=== PATIENT | male | born 1950 | race Caucasian/White ===

== ENCOUNTER 2022-08-23 12:49 | Inpatient (IN) | payer MEDICARE, OTHER ==
[~2022-08-23] VITALS: Ht 175.3 cm; Wt 95.3 kg
[2022-08-23] MEDS ORDERED: HEPARIN SODIUM 25000 UNITS/D5W 250 ML IV ONE (13:29)
[2022-08-23 13:46] LABS: BASOPHILS % (AUTO) 0.3 % (0.0-2.0); EOSINOPHILS % (AUTO) 1.1 % (1.0-6.0); HEMATOCRIT 31.9 % (41-53); LYMPHOCYTES # (AUTO) 1.1 K/uL (1.0-4.8); LYMPHOCYTES % (AUTO) 12.3 % (22.0-44.0); MEAN CORPUSCULAR HEMOGLOBIN 31.5 pg (26.0-34.0); MEAN CORPUSCULAR HGB CONC 34.7 G/dL (31.0-37.0); MEAN CORPUSCULAR VOLUME 91 fL (80-100); MONOCYTES # (AUTO) 0.5 K/uL (0.1-1.0); NEUTROPHILS # (AUTO) 7.2 K/uL (1.8-7.7); NEUTROPHILS % (AUTO) 80.3 % (40.0-70.0); PLATELET COUNT (AUTO) 322 K/uL (150-450); RED BLOOD CELL COUNT(AUTO) 3.51 MIL/uL (4.50-5.90); RED CELL DISTRIBUTION WIDTH 13.7 % (11.5-14.5)
[2022-08-23 13:49] LABS: CALCIUM, TOTAL 8.8 mg/dL (8.8-10.5); CREATININE 1.2 mg/dL (0.60-1.30); POTASSIUM 3.8 mmol/L (3.5-5.1)
[2022-08-23] MEDS: HEPARIN SODIUM 25000 UNITS/D5W 250 ML IV PRN (14:00)
[2022-08-23] MEDS ORDERED: MORPHINE SULFATE 4 MG/ML SYRINGE IVP ONE (14:30)
[2022-08-23] MEDS ORDERED: DILTIAZEM HCL 5 MG/ML 5 ML VIAL IVP ONE (16:15)
[2022-08-23] MEDS: DILTIAZEM HCL 125 MG in DEXTROSE 5%-WATER 100 ML IV SCH (16:28)
[2022-08-23 16:35] LABS: C-REACTIVE PROTEIN QUANT 9.9 mg/dL (0.00-0.30)
[2022-08-23] MEDS ORDERED: MORPHINE SULFATE 4 MG/ML SYRINGE IVP PRN (16:45)
[2022-08-23] MEDS ORDERED: DEXTROSE 50%-WATER 25 GM/50 ML SYRINGE IVP PRN (16:45)
[2022-08-23] MEDS ORDERED: ONDANSETRON HCL 4 MG/2 ML VIAL IVP PRN (16:45)
[2022-08-23] MEDS ORDERED: HEPARIN SODIUM,PORCINE 5,000 UNITS/ML VIAL IVP PRN (16:45)
[2022-08-23] MEDS ORDERED: SODIUM CHLORIDE 0.9% 1,000 ML IV ONE (17:00)
[2022-08-23] MEDS ORDERED: *CLINICAL-CEFTAROLINE DOSING CLINICAL ONE (17:00)
[2022-08-23 17:17] LABS: APPEARANCE,URINE CLEAR (CLEAR); BILIRUBIN,URINE NEGATIVE (NEGATIVE); GLUCOSE, URINE (UA) >=1000 mg/dL (NEGATIVE); KETONES,URINE NEGATIVE (NEGATIVE); LEUKOCYTE ESTERASE ,URINE NEGATIVE (NEGATIVE); NITRATE,URINE NEGATIVE (NEGATIVE); OCCULT BLOOD,URINE MODERATE (NEGATIVE); PH,URINE 6.5 (5.0-8.0); PROTEIN,URINE 30-70 mg/dL (NEGATIVE); SPECIFIC GRAVITIY, URINE 1.015 (1.003-1.030)
[2022-08-23 17:29] LABS: BACTERIA,URINE None Seen /HPF (None Seen); SQUAMOUS EPITHELIAL CELL,UR None Seen /LPF (None Seen); WBC,URINE 0-2 /HPF (0-5)
[2022-08-23] MEDS ORDERED: DIGOXIN 250 MCG/ML 2 ML AMP IVP ONE (17:45)
[2022-08-23] MEDS: CEFTAROLINE 600 MG/D5W 250 ML IV SCH (18:02)
[2022-08-23] MEDS: MORPHINE SULFATE 2 MG/ML SYRINGE IVP PRN (22:31)
[2022-08-23] MEDS: HEPARIN SODIUM,PORCINE 5,000 UNITS/ML VIAL IVP PRN (22:43)
[2022-08-23] MEDS: FAMOTIDINE 20 MG TABLET PO SCH (22:47)
[2022-08-23] MEDS: DOCUSATE SODIUM 100 MG CAPSULE PO SCH (22:47)
[2022-08-23 23:09] VITALS: BP 130/82
[2022-08-23] MEDS: INSULIN LISPRO 100 UNITS/ML SQ PRN (23:21)
[2022-08-23 23:42] LABS: GLUCOMETER DEV NAME(LOC) 5S.2C; GLUCOSE,POINT OF CARE 226 MG/DL (70-110)
[2022-08-24] VITALS (11 sets, daily range): BP systolic 123–150; BP diastolic 58–88
[2022-08-24] MEDS: OxyCODONE HCL/ACETAMINOPHEN 5-325 MG TABLET PO PRN ×4 (01:27→23:55)
[2022-08-24] MEDS: HEPARIN SODIUM 25000 UNITS/D5W 250 ML IV PRN ×2 (02:45→22:32)
[2022-08-24] MEDS: CEFTAROLINE 600 MG/D5W 250 ML IV SCH ×2 (04:20→17:32)
[2022-08-24] MEDS: MORPHINE SULFATE 2 MG/ML SYRINGE IVP PRN ×3 (04:20→21:41)
[2022-08-24] MEDS: INSULIN LISPRO 100 UNITS/ML SQ PRN ×2 (06:08→21:13)
[2022-08-24 06:26] LABS: GLUCOMETER DEV NAME(LOC) 5S.2C; GLUCOSE,POINT OF CARE 214 MG/DL (70-110)
[2022-08-24 06:55] LABS: BASOPHILS % (AUTO) 0.7 % (0.0-2.0); EOSINOPHILS % (AUTO) 0.9 % (1.0-6.0); HEMATOCRIT 26.6 % (41-53); HEMOGLOBIN 9.4 g/dL (13.5-17.5); LYMPHOCYTES # (AUTO) 0.9 K/uL (1.0-4.8); MEAN CORPUSCULAR HEMOGLOBIN 31.9 pg (26.0-34.0); MEAN CORPUSCULAR HGB CONC 35.3 G/dL (31.0-37.0); MEAN CORPUSCULAR VOLUME 90 fL (80-100); MONOCYTES # (AUTO) 0.5 K/uL (0.1-1.0); MONOCYTES % (AUTO) 6.7 % (2.0-9.0); NEUTROPHILS # (AUTO) 6.1 K/uL (1.8-7.7); NEUTROPHILS % (AUTO) 79.7 % (40.0-70.0); PLATELET COUNT (AUTO) 311 K/uL (150-450); RED BLOOD CELL COUNT(AUTO) 2.95 MIL/uL (4.50-5.90); RED CELL DISTRIBUTION WIDTH 13.6 % (11.5-14.5)
[2022-08-24 07:14] LABS: ANION GAP 7 mmol/L (8-16); CALCIUM, TOTAL 8.5 mg/dL (8.8-10.5); CARBON DIOXIDE 28 mmol/L (22-29); CHLORIDE 93 mmol/L (98-107); CREATININE 1.17 mg/dL (0.60-1.30); GLOMERULAR FILTR. RATE CALC > 60 mL/min (>60); GLUCOSE,RANDOM 251 mg/dL (70-110); POTASSIUM 3.6 mmol/L (3.5-5.1); SODIUM SERUM 128 mmol/L (136-145); THYROID STIMULATING HORMONE 1.14 uIU/mL (0.36-3.74); UREA NITROGEN, BLOOD 12 mg/dL (7-18)
[2022-08-24] MEDS: FAMOTIDINE 20 MG TABLET PO SCH ×2 (09:06→21:13)
[2022-08-24] MEDS: DOCUSATE SODIUM 100 MG CAPSULE PO SCH ×2 (09:06→21:13)
[2022-08-24] MEDS: METOPROLOL TARTRATE 25 MG TABLET PO SCH ×2 (11:05→21:13)
[2022-08-24] MEDS ORDERED: LIDOCAINE/PF 1% 30 ML VIAL ONE (14:04)
[2022-08-24] MEDS ORDERED: SODIUM BICARBONATE 50 MEQ/50 ML VIAL ONE (14:04)
[2022-08-24] MEDS ORDERED: IODIXANOL 320 MG/ML 100 ML VIAL ONE ×2 (14:04→14:05)
[2022-08-24] MEDS ORDERED: HEPARIN SODIUM 1000 UNITS/NS 1,000 ML ONE (14:05)
[2022-08-24] MEDS ORDERED: IODIXANOL 320 MG/ML 150 ML VIAL ONE (14:06)
[2022-08-24] MEDS ORDERED: IODIXANOL 320 MG/ML 50 ML VIAL ONE (14:06)
[2022-08-24] MEDS ORDERED: MIDAZOLAM HCL 2 MG/2 ML VIAL ONE (14:53)
[2022-08-24] MEDS ORDERED: FentaNYL CITRATE PF 100 MCG/2 ML VIAL ONE ×2 (14:53→16:25)
[2022-08-24] MEDS ORDERED: FentaNYL CITRATE PF 100 MCG/2 ML VIAL IVP ONE ×4 (15:00→16:30)
[2022-08-24] MEDS ORDERED: SODIUM CHLORIDE 0.9% 500 ML IV ONE (15:00)
[2022-08-24] MEDS ORDERED: IODIXANOL 320 MG/ML 150 ML VIAL IARTER ONE (15:00)
[2022-08-24] MEDS ORDERED: HEPARIN SODIUM 1000 UNITS/NS 1,000 ML IARTER ONE (15:00)
[2022-08-24] MEDS ORDERED: MIDAZOLAM HCL 2 MG/2 ML VIAL IVP ONE ×2 (15:00→15:45)
[2022-08-24] MEDS ORDERED: LIDOCAINE 1% 30 ML/SOD BICARB 8.4% 4 ML SQ ONE (15:00)
[2022-08-24] MEDS ORDERED: HEPARIN SODIUM,PORCINE 1,000 UNITS/ML 10 ML VIAL IVP ONE (16:00)
[2022-08-24] MEDS ORDERED: MORPHINE SULFATE 2 MG/ML SYRINGE ONE (16:11)
[2022-08-24] MEDS ORDERED: MORPHINE SULFATE 2 MG/ML SYRINGE IVP ONE (16:15)
[2022-08-24 16:56] LABS: GLUCOMETER DEV NAME(LOC) 5N.2C; GLUCOSE,POINT OF CARE 189 MG/DL (70-110)
[2022-08-24] MEDS: DILTIAZEM HCL 125 MG in DEXTROSE 5%-WATER 100 ML IV SCH (17:43)
[2022-08-24 18:56] LABS: GLUCOMETER DEV NAME(LOC) 5N.2C; GLUCOSE,POINT OF CARE 169 MG/DL (70-110)
[2022-08-24 20:16] LABS: GLUCOMETER DEV NAME(LOC) 5N.2C; GLUCOSE,POINT OF CARE 219 MG/DL (70-110)
[2022-08-24] MEDS ORDERED: AMIODARONE HCL 360 MG in DEXTROSE 5%-WATER 242.8 ML IV ONE ×2 (20:45→21:10)
[2022-08-24] MEDS ORDERED: AMIODARONE HCL 150 MG in DEXTROSE 5%-WATER 97 ML IV ONE (21:00)
[2022-08-24] MEDS: HEPARIN SODIUM,PORCINE 5,000 UNITS/ML VIAL IVP PRN (22:31)
[2022-08-24] MEDS: GABAPENTIN 100 MG CAPSULE PO SCH (23:55)
[2022-08-25] VITALS (7 sets, daily range): BP systolic 107–144; BP diastolic 58–92
[2022-08-25] MEDS: MORPHINE SULFATE 2 MG/ML SYRINGE IVP PRN ×5 (01:57→20:37)
[2022-08-25] MEDS ORDERED: AMIODARONE HCL 540 MG in DEXTROSE 5%-WATER 239.2 ML IV ONE (03:10)
[2022-08-25] MEDS: CEFTAROLINE 600 MG/D5W 250 ML IV SCH ×2 (05:54→17:02)
[2022-08-25] MEDS: INSULIN LISPRO 100 UNITS/ML SQ PRN ×4 (06:05→20:48)
[2022-08-25 06:27] LABS: GLUCOMETER DEV NAME(LOC) 5N.2C; GLUCOSE,POINT OF CARE 190 MG/DL (70-110)
[2022-08-25] MEDS: DOCUSATE SODIUM 100 MG CAPSULE PO SCH ×2 (08:21→20:36)
[2022-08-25] MEDS: GABAPENTIN 100 MG CAPSULE PO SCH ×3 (08:21→23:18)
[2022-08-25] MEDS: METOPROLOL TARTRATE 50 MG TABLET PO SCH ×2 (08:22→20:36)
[2022-08-25] MEDS: FAMOTIDINE 20 MG TABLET PO SCH ×2 (08:22→20:37)
[2022-08-25] MEDS: OxyCODONE HCL/ACETAMINOPHEN 5-325 MG TABLET PO PRN ×2 (08:23→23:18)
[2022-08-25 11:56] LABS: GLUCOMETER DEV NAME(LOC) 5S.2C; GLUCOSE,POINT OF CARE 234 MG/DL (70-110)
[2022-08-25 20:46] LABS: GLUCOMETER DEV NAME(LOC) 5S.2C; GLUCOSE,POINT OF CARE 238 MG/DL (70-110)
[2022-08-25] MEDS: AMIODARONE HCL 750 MG in DEXTROSE 5%-WATER 485 ML IV SCH (21:38)
[2022-08-25 21:41] LABS: GLUCOMETER DEV NAME(LOC) 5S.2C; GLUCOSE,POINT OF CARE 202 MG/DL (70-110)
[2022-08-26] MEDS: CEFTAROLINE 600 MG/D5W 250 ML IV SCH ×2 (04:30→16:51)
[2022-08-26] MEDS: MORPHINE SULFATE 2 MG/ML SYRINGE IVP PRN ×3 (04:30→21:09)
[2022-08-26] MEDS: HEPARIN SODIUM 25000 UNITS/D5W 250 ML IV PRN (04:31)
[2022-08-26 04:36] VITALS: BP 155/83
[2022-08-26] MEDS: INSULIN LISPRO 100 UNITS/ML SQ PRN ×4 (06:03→21:07)
[2022-08-26] MEDS ORDERED: DIGOXIN 250 MCG/ML 2 ML AMP IVP ONE (06:15)
[2022-08-26] MEDS ORDERED: RINGERS SOLUTION,LACTATED 1,000 ML IV SCH (06:30)
[2022-08-26] MEDS ORDERED: RINGERS SOLUTION,LACTATED 1,000 ML IV ONE (06:36)
[2022-08-26] MEDS ORDERED: BUPIVACAINE HCL/PF 0.5% 30 ML VIAL ONE (06:44)
[2022-08-26] MEDS ORDERED: VANCOMYCIN HCL 1 GM/VIAL ONE (06:44)
[2022-08-26] MEDS ORDERED: LIDOCAINE/PF 1% 30 ML VIAL ONE (06:44)
[2022-08-26] MEDS ORDERED: SODIUM CHLORIDE 0.9% 1,000 ML ONE (06:44)
[2022-08-26 07:17] LABS: BASOPHILS % (AUTO) 0.6 % (0.0-2.0); HEMATOCRIT 25.2 % (41-53); HEMOGLOBIN 8.7 g/dL (13.5-17.5); LYMPHOCYTES # (AUTO) 1.1 K/uL (1.0-4.8); LYMPHOCYTES % (AUTO) 11.3 % (22.0-44.0); MEAN CORPUSCULAR HEMOGLOBIN 30.9 pg (26.0-34.0); MEAN CORPUSCULAR HGB CONC 34.6 G/dL (31.0-37.0); MEAN CORPUSCULAR VOLUME 89 fL (80-100); MONOCYTES # (AUTO) 0.7 K/uL (0.1-1.0); MONOCYTES % (AUTO) 7.5 % (2.0-9.0); NEUTROPHILS # (AUTO) 7.5 K/uL (1.8-7.7); NEUTROPHILS % (AUTO) 79.6 % (40.0-70.0); PLATELET COUNT (AUTO) 374 K/uL (150-450); RED BLOOD CELL COUNT(AUTO) 2.83 MIL/uL (4.50-5.90); RED CELL DISTRIBUTION WIDTH 13.7 % (11.5-14.5)
[2022-08-26 07:37] LABS: CARBON DIOXIDE 26 mmol/L (22-29); CHLORIDE 96 mmol/L (98-107); POTASSIUM 3.5 mmol/L (3.5-5.1); SODIUM SERUM 130 mmol/L (136-145)
[2022-08-26 07:38] LABS: ANION GAP 8 mmol/L (8-16); CALCIUM, TOTAL 8.4 mg/dL (8.8-10.5); CREATININE 0.93 mg/dL (0.60-1.30); GLOMERULAR FILTR. RATE CALC > 60 mL/min (>60); GLUCOSE,RANDOM 206 mg/dL (70-110); UREA NITROGEN, BLOOD 6 mg/dL (7-18)
[2022-08-26] MEDS: GABAPENTIN 100 MG CAPSULE PO SCH ×3 (08:15→23:47)
[2022-08-26 08:49] VITALS: BP 172/107
[2022-08-26] MEDS: OxyCODONE HCL/ACETAMINOPHEN 5-325 MG TABLET PO PRN ×3 (09:16→15:53)
[2022-08-26] MEDS: DOCUSATE SODIUM 100 MG CAPSULE PO SCH ×2 (09:17→21:00)
[2022-08-26] MEDS: FAMOTIDINE 20 MG TABLET PO SCH ×2 (09:17→21:08)
[2022-08-26] MEDS: METOPROLOL TARTRATE 50 MG TABLET PO SCH ×2 (09:19→21:08)
[2022-08-26 11:14] VITALS: BP 137/82
[2022-08-26] MEDS ORDERED: FentaNYL CITRATE PF 100 MCG/2 ML VIAL IVP ONE (12:00)
[2022-08-26] MEDS ORDERED: MIDAZOLAM HCL 2 MG/2 ML VIAL IVP ONE (12:00)
[2022-08-26] MEDS: DIGOXIN 125 MCG TABLET PO SCH (13:33)
[2022-08-26 20:41] LABS: GLUCOMETER DEV NAME(LOC) 5N.2C; GLUCOSE,POINT OF CARE 199 MG/DL (70-110)
[2022-08-26 20:41] LABS: GLUCOMETER DEV NAME(LOC) 5N.2C; GLUCOSE,POINT OF CARE 207 MG/DL (70-110)
[2022-08-26 20:41] LABS: GLUCOMETER DEV NAME(LOC) 5N.2C; GLUCOSE,POINT OF CARE 259 MG/DL (70-110)
[2022-08-26 20:57] VITALS: BP 129/73
[2022-08-26] MEDS: AMIODARONE HCL 750 MG in DEXTROSE 5%-WATER 485 ML IV SCH (23:47)
[2022-08-26 23:48] VITALS: BP 137/80
[2022-08-27] VITALS (10 sets, daily range): BP systolic 135–166; BP diastolic 79–98
[2022-08-27 00:06] LABS: GLUCOMETER DEV NAME(LOC) 5S.2C; GLUCOSE,POINT OF CARE 224 MG/DL (70-110)
[2022-08-27] MEDS: MORPHINE SULFATE 2 MG/ML SYRINGE IVP PRN ×3 (03:25→21:44)
[2022-08-27] MEDS: CEFTAROLINE 600 MG/D5W 250 ML IV SCH ×2 (05:10→17:17)
[2022-08-27] MEDS: INSULIN LISPRO 100 UNITS/ML SQ PRN ×4 (06:08→21:40)
[2022-08-27] MEDS ORDERED: SODIUM CHLORIDE 0.9% 1,000 ML ONE ×2 (06:19→07:05)
[2022-08-27] MEDS ORDERED: VANCOMYCIN HCL 1 GM/VIAL ONE (06:19)
[2022-08-27] MEDS ORDERED: BUPIVACAINE HCL/PF 0.5% 30 ML VIAL ONE (06:19)
[2022-08-27] MEDS ORDERED: LIDOCAINE/PF 1% 30 ML VIAL ONE (06:19)
[2022-08-27 06:56] LABS: BASOPHILS % (AUTO) 0.4 % (0.0-2.0); EOSINOPHILS % (AUTO) 0.6 % (1.0-6.0); HEMATOCRIT 26.1 % (41-53); HEMOGLOBIN 9.1 g/dL (13.5-17.5); LYMPHOCYTES # (AUTO) 0.9 K/uL (1.0-4.8); LYMPHOCYTES % (AUTO) 9.9 % (22.0-44.0); MEAN CORPUSCULAR HEMOGLOBIN 31.3 pg (26.0-34.0); MEAN CORPUSCULAR VOLUME 89 fL (80-100); MONOCYTES # (AUTO) 0.8 K/uL (0.1-1.0); MONOCYTES % (AUTO) 8.5 % (2.0-9.0); NEUTROPHILS # (AUTO) 7.7 K/uL (1.8-7.7); NEUTROPHILS % (AUTO) 80.6 % (40.0-70.0); PLATELET COUNT (AUTO) 413 K/uL (150-450); RED BLOOD CELL COUNT(AUTO) 2.92 MIL/uL (4.50-5.90); RED CELL DISTRIBUTION WIDTH 13.9 % (11.5-14.5)
[2022-08-27] MEDS ORDERED: ACETAMINOPHEN 1000 MG/ISO-OSM 100 ML IV ONE (07:39)
[2022-08-27] MEDS ORDERED: FentaNYL CITRATE PF 100 MCG/2 ML VIAL IVP PRN (07:45)
[2022-08-27] MEDS: OXYGEN THERAPY IH SCH ×2 (08:00→21:53)
[2022-08-27] MEDS: FAMOTIDINE 20 MG TABLET PO SCH ×2 (09:25→21:41)
[2022-08-27] MEDS: DOCUSATE SODIUM 100 MG CAPSULE PO SCH ×2 (09:26→21:40)
[2022-08-27] MEDS: DIGOXIN 125 MCG TABLET PO SCH (09:26)
[2022-08-27] MEDS: GABAPENTIN 100 MG CAPSULE PO SCH ×3 (09:26→23:44)
[2022-08-27] MEDS: METOPROLOL TARTRATE 50 MG TABLET PO SCH ×2 (09:27→21:40)
[2022-08-27 10:50] LABS: ANION GAP 8 mmol/L (8-16); CALCIUM, TOTAL 8.1 mg/dL (8.8-10.5); CARBON DIOXIDE 25 mmol/L (22-29); CHLORIDE 97 mmol/L (98-107); CREATININE 1.04 mg/dL (0.60-1.30); GLOMERULAR FILTR. RATE CALC > 60 mL/min (>60); GLUCOSE,RANDOM 169 mg/dL (70-110); POTASSIUM 3.7 mmol/L (3.5-5.1); SODIUM SERUM 130 mmol/L (136-145); UREA NITROGEN, BLOOD 6 mg/dL (7-18)
[2022-08-27] MEDS: HEPARIN SODIUM 25000 UNITS/D5W 250 ML IV PRN (11:52)
[2022-08-27] MEDS ORDERED: KETOROLAC TROMETHAMINE 60 MG/2 ML VIAL IM ONE (12:00)
[2022-08-27] MEDS ORDERED: PROPOFOL 1% 20 ML VIAL IVP ONE (12:00)
[2022-08-27] MEDS ORDERED: LIDOCAINE/PF 2% 5 ML VIAL IM ONE (12:00)
[2022-08-27] MEDS: OxyCODONE HCL/ACETAMINOPHEN 5-325 MG TABLET PO PRN (13:04)
[2022-08-27] MEDS: AMIODARONE HCL 200 MG TABLET PO SCH ×2 (15:54→21:41)
[2022-08-27 18:37] LABS: GLUCOMETER DEV NAME(LOC) 5S.2C; GLUCOSE,POINT OF CARE 156 MG/DL (70-110)
[2022-08-28 00:04] VITALS: BP 126/81
[2022-08-28 03:43] VITALS: BP 141/78
[2022-08-28] MEDS: CEFTAROLINE 600 MG/D5W 250 ML IV SCH ×2 (05:11→16:21)
[2022-08-28] MEDS: INSULIN LISPRO 100 UNITS/ML SQ PRN ×3 (06:27→20:27)
[2022-08-28] MEDS: MORPHINE SULFATE 2 MG/ML SYRINGE IVP PRN ×3 (06:28→20:31)
[2022-08-28 07:35] VITALS: BP 146/87
[2022-08-28] MEDS: OXYGEN THERAPY IH SCH ×2 (08:00→20:00)
[2022-08-28] MEDS: GABAPENTIN 100 MG CAPSULE PO SCH ×2 (08:50→16:21)
[2022-08-28] MEDS: DIGOXIN 125 MCG TABLET PO SCH (08:50)
[2022-08-28] MEDS: AMIODARONE HCL 200 MG TABLET PO SCH (08:50)
[2022-08-28] MEDS: DOCUSATE SODIUM 100 MG CAPSULE PO SCH ×2 (08:50→20:40)
[2022-08-28] MEDS: FAMOTIDINE 20 MG TABLET PO SCH ×2 (08:50→20:23)
[2022-08-28] MEDS: METOPROLOL TARTRATE 50 MG TABLET PO SCH ×2 (08:51→20:23)
[2022-08-28] MEDS: ACETAMINOPHEN 325 MG TABLET PO PRN (08:51)
[2022-08-28] MEDS: OxyCODONE HCL/ACETAMINOPHEN 5-325 MG TABLET PO PRN ×3 (08:51→17:16)
[2022-08-28] MEDS: APIXABAN 5 MG TABLET PO SCH ×2 (08:54→20:24)
[2022-08-28 11:07] VITALS: BP 137/70
[2022-08-28 11:32] LABS: APPEARANCE,URINE CLEAR (CLEAR); BILIRUBIN,URINE NEGATIVE (NEGATIVE); GLUCOSE, URINE (UA) 70-100 mg/dL (NEGATIVE); KETONES,URINE NEGATIVE (NEGATIVE); LEUKOCYTE ESTERASE ,URINE NEGATIVE (NEGATIVE); NITRATE,URINE NEGATIVE (NEGATIVE); OCCULT BLOOD,URINE TRACE (NEGATIVE); PH,URINE 6.5 (5.0-8.0); PROTEIN,URINE 30-70 mg/dL (NEGATIVE); SPECIFIC GRAVITIY, URINE 1.008 (1.003-1.030)
[2022-08-28 11:38] LABS: BACTERIA,URINE None Seen /HPF (None Seen); RBC,URINE 0-2 /HPF (0-2); WBC,URINE None Seen /HPF (0-5)
[2022-08-28 16:14] VITALS: BP 153/103
[2022-08-28 18:37] LABS: GLUCOMETER DEV NAME(LOC) 5N.2C; GLUCOSE,POINT OF CARE 213 MG/DL (70-110)
[2022-08-28 18:37] LABS: GLUCOMETER DEV NAME(LOC) 5N.2C; GLUCOSE,POINT OF CARE 196 MG/DL (70-110)
[2022-08-28 18:37] LABS: GLUCOMETER DEV NAME(LOC) 5N.2C; GLUCOSE,POINT OF CARE 203 MG/DL (70-110)
[2022-08-28 18:46] LABS: GLUCOMETER DEV NAME(LOC) 5S.2C; GLUCOSE,POINT OF CARE 135 MG/DL (70-110)
[2022-08-28 18:46] LABS: GLUCOMETER DEV NAME(LOC) 5S.2C; GLUCOSE,POINT OF CARE 209 MG/DL (70-110)
[2022-08-28 18:46] LABS: GLUCOMETER DEV NAME(LOC) 5S.2C; GLUCOSE,POINT OF CARE 197 MG/DL (70-110)
[2022-08-28 20:11] VITALS: BP 133/81
[2022-08-28 23:06] LABS: GLUCOMETER DEV NAME(LOC) 5S.2C; GLUCOSE,POINT OF CARE 223 MG/DL (70-110)
[2022-08-29 00:10] VITALS: BP 140/85
[2022-08-29] MEDS: GABAPENTIN 100 MG CAPSULE PO SCH ×3 (00:15→17:56)
[2022-08-29] MEDS: MORPHINE SULFATE 2 MG/ML SYRINGE IVP PRN ×5 (04:37→22:16)
[2022-08-29] MEDS: CEFTAROLINE 600 MG/D5W 250 ML IV SCH ×2 (04:37→17:56)
[2022-08-29 05:18] VITALS: BP 159/85
[2022-08-29] MEDS: INSULIN LISPRO 100 UNITS/ML SQ PRN ×4 (06:28→21:14)
[2022-08-29 07:30] VITALS: BP 144/88
[2022-08-29] MEDS: OXYGEN THERAPY IH SCH ×2 (08:00→21:15)
[2022-08-29] MEDS: AMIODARONE HCL 200 MG TABLET PO SCH (08:21)
[2022-08-29] MEDS: APIXABAN 5 MG TABLET PO SCH ×2 (08:21→21:15)
[2022-08-29] MEDS: DOCUSATE SODIUM 100 MG CAPSULE PO SCH ×2 (08:21→21:00)
[2022-08-29] MEDS: DIGOXIN 125 MCG TABLET PO SCH (08:21)
[2022-08-29] MEDS: METOPROLOL TARTRATE 50 MG TABLET PO SCH ×2 (08:21→21:15)
[2022-08-29] MEDS: FAMOTIDINE 20 MG TABLET PO SCH ×2 (08:21→21:15)
[2022-08-29] MEDS: OxyCODONE HCL/ACETAMINOPHEN 5-325 MG TABLET PO PRN ×4 (09:40→19:01)
[2022-08-29 11:38] VITALS: BP 159/72
[2022-08-29 15:29] VITALS: BP 140/81
[2022-08-29 20:16] LABS: GLUCOMETER DEV NAME(LOC) 5N.2C; GLUCOSE,POINT OF CARE 195 MG/DL (70-110)
[2022-08-29 20:16] LABS: GLUCOMETER DEV NAME(LOC) 5N.2C; GLUCOSE,POINT OF CARE 183 MG/DL (70-110)
[2022-08-29 20:16] LABS: GLUCOMETER DEV NAME(LOC) 5S.2C; GLUCOSE,POINT OF CARE 171 MG/DL (70-110)
[2022-08-29 20:37] VITALS: BP 143/92
[2022-08-30 00:03] VITALS: BP 137/71
[2022-08-30] MEDS: GABAPENTIN 100 MG CAPSULE PO SCH ×4 (00:21→23:41)
[2022-08-30] MEDS: OxyCODONE HCL/ACETAMINOPHEN 5-325 MG TABLET PO PRN ×4 (00:21→22:32)
[2022-08-30 01:56] LABS: GLUCOMETER DEV NAME(LOC) 5N.2C; GLUCOSE,POINT OF CARE 184 MG/DL (70-110)
[2022-08-30 05:28] VITALS: BP 156/93
[2022-08-30] MEDS: MORPHINE SULFATE 2 MG/ML SYRINGE IVP PRN ×3 (06:03→16:27)
[2022-08-30] MEDS: CEFTAROLINE 600 MG/D5W 250 ML IV SCH ×2 (06:03→16:40)
[2022-08-30 06:12] LABS: BASOPHILS % (AUTO) 0.8 % (0.0-2.0); EOSINOPHILS % (AUTO) 1.1 % (1.0-6.0); HEMATOCRIT 27.9 % (41-53); HEMOGLOBIN 9.5 g/dL (13.5-17.5); LYMPHOCYTES # (AUTO) 1.4 K/uL (1.0-4.8); LYMPHOCYTES % (AUTO) 16.1 % (22.0-44.0); MEAN CORPUSCULAR HEMOGLOBIN 30.6 pg (26.0-34.0); MEAN CORPUSCULAR VOLUME 90 fL (80-100); MONOCYTES # (AUTO) 0.7 K/uL (0.1-1.0); MONOCYTES % (AUTO) 8.5 % (2.0-9.0); NEUTROPHILS # (AUTO) 6.3 K/uL (1.8-7.7); NEUTROPHILS % (AUTO) 73.5 % (40.0-70.0); PLATELET COUNT (AUTO) 543 K/uL (150-450)
[2022-08-30] MEDS ORDERED: HEPARIN SODIUM,PORCINE 5,000 UNITS/ML VIAL IVP PRN (06:15)
[2022-08-30 06:25] LABS: INR 1.2 (0.9-1.1); PROTHROMBIN TIME 12.3 SEC (9.4-11.6)
[2022-08-30 06:41] LABS: GLUCOMETER DEV NAME(LOC) 5N.2C; GLUCOSE,POINT OF CARE 123 MG/DL (70-110)
[2022-08-30 07:26] VITALS: BP 161/103
[2022-08-30] MEDS: OXYGEN THERAPY IH SCH (08:00)
[2022-08-30] MEDS: DIGOXIN 125 MCG TABLET PO SCH (08:09)
[2022-08-30] MEDS: FAMOTIDINE 20 MG TABLET PO SCH ×2 (08:10→20:34)
[2022-08-30] MEDS: AMIODARONE HCL 200 MG TABLET PO SCH (08:11)
[2022-08-30] MEDS: METOPROLOL TARTRATE 50 MG TABLET PO SCH ×2 (08:11→20:34)
[2022-08-30] MEDS: DOCUSATE SODIUM 100 MG CAPSULE PO SCH ×2 (08:11→20:34)
[2022-08-30] MEDS: HEPARIN SODIUM 25000 UNITS/D5W 250 ML IV PRN (08:43)
[2022-08-30] MEDS: HEPARIN SODIUM,PORCINE 5,000 UNITS/ML VIAL IVP PRN (08:52)
[2022-08-30 11:37] VITALS: BP 129/80
[2022-08-30 15:40] VITALS: BP 138/84
[2022-08-30 15:53] LABS: ALANINE AMINOTRANSFERASE 20 U/L (12-78); ALBUMIN 1.9 g/dL (3.4-5.0); ALKALINE PHOSPHATASE 92 U/L (46-116); ANION GAP 6 mmol/L (8-16); ASPARTATE AMINOTRANSFERASE 13 U/L (15-37); BILIRUBIN,TOTAL 0.2 mg/dL (0.1-1.0); CALCIUM, TOTAL 8.7 mg/dL (8.8-10.5); CARBON DIOXIDE 27 mmol/L (22-29); CHLORIDE 95 mmol/L (98-107); CREATININE 1.11 mg/dL (0.60-1.30); GLOMERULAR FILTR. RATE CALC > 60 mL/min (>60); GLUCOSE,RANDOM 169 mg/dL (70-110); POTASSIUM 4.8 mmol/L (3.5-5.1); SODIUM SERUM 128 mmol/L (136-145); TOTAL PROTEIN, SERUM 6.8 g/dL (6.4-8.2); UREA NITROGEN, BLOOD 9 mg/dL (7-18)
[2022-08-30 20:16] VITALS: BP 159/95
[2022-08-30 20:21] LABS: GLUCOMETER DEV NAME(LOC) 5S.2C; GLUCOSE,POINT OF CARE 194 MG/DL (70-110)
[2022-08-30 20:21] LABS: GLUCOMETER DEV NAME(LOC) 5S.2C; GLUCOSE,POINT OF CARE 189 MG/DL (70-110)
[2022-08-30] MEDS: INSULIN LISPRO 100 UNITS/ML SQ PRN (20:31)
[2022-08-30 21:16] LABS: GLUCOMETER DEV NAME(LOC) 5N.2C; GLUCOSE,POINT OF CARE 173 MG/DL (70-110)
[2022-08-31 00:06] VITALS: BP 147/86
[2022-08-31] MEDS: HEPARIN SODIUM 25000 UNITS/D5W 250 ML IV PRN ×4 (02:23→17:37)
[2022-08-31 04:53] VITALS: BP 160/102
[2022-08-31] MEDS: CEFTAROLINE 600 MG/D5W 250 ML IV SCH ×2 (05:32→17:30)
[2022-08-31] MEDS: OxyCODONE HCL/ACETAMINOPHEN 5-325 MG TABLET PO PRN ×3 (05:32→21:41)
[2022-08-31 06:22] LABS: GLUCOMETER DEV NAME(LOC) 5N.2C; GLUCOSE,POINT OF CARE 168 MG/DL (70-110)
[2022-08-31] MEDS: INSULIN LISPRO 100 UNITS/ML SQ PRN ×3 (06:25→21:45)
[2022-08-31 06:43] LABS: BASOPHILS % (AUTO) 0.9 % (0.0-2.0); EOSINOPHILS % (AUTO) 1.4 % (1.0-6.0); HEMATOCRIT 27.6 % (41-53); HEMOGLOBIN 9.6 g/dL (13.5-17.5); LYMPHOCYTES # (AUTO) 1.4 K/uL (1.0-4.8); LYMPHOCYTES % (AUTO) 15.5 % (22.0-44.0); MEAN CORPUSCULAR HEMOGLOBIN 30.8 pg (26.0-34.0); MEAN CORPUSCULAR HGB CONC 34.7 G/dL (31.0-37.0); MEAN CORPUSCULAR VOLUME 89 fL (80-100); MONOCYTES # (AUTO) 0.9 K/uL (0.1-1.0); MONOCYTES % (AUTO) 9.7 % (2.0-9.0); NEUTROPHILS # (AUTO) 6.5 K/uL (1.8-7.7); NEUTROPHILS % (AUTO) 72.5 % (40.0-70.0); PLATELET COUNT (AUTO) 615 K/uL (150-450); RED BLOOD CELL COUNT(AUTO) 3.12 MIL/uL (4.50-5.90); RED CELL DISTRIBUTION WIDTH 14.1 % (11.5-14.5)
[2022-08-31] MEDS: METOPROLOL TARTRATE 50 MG TABLET PO SCH ×2 (08:03→21:00)
[2022-08-31] MEDS: DOCUSATE SODIUM 100 MG CAPSULE PO SCH ×2 (08:04→21:41)
[2022-08-31] MEDS: FAMOTIDINE 20 MG TABLET PO SCH ×2 (08:04→21:41)
[2022-08-31] MEDS: AMIODARONE HCL 200 MG TABLET PO SCH (08:04)
[2022-08-31] MEDS: DIGOXIN 125 MCG TABLET PO SCH (08:04)
[2022-08-31] MEDS: MORPHINE SULFATE 2 MG/ML SYRINGE IVP PRN (08:04)
[2022-08-31] MEDS: HEPARIN SODIUM,PORCINE 5,000 UNITS/ML VIAL IVP PRN (08:07)
[2022-08-31] MEDS: GABAPENTIN 100 MG CAPSULE PO SCH ×2 (08:11→15:47)
[2022-08-31 10:10] VITALS: BP 136/75
[2022-08-31 15:35] VITALS: BP 120/72
[2022-08-31 17:36] LABS: GLUCOMETER DEV NAME(LOC) 5N.2C; GLUCOSE,POINT OF CARE 137 MG/DL (70-110)
[2022-08-31 19:56] LABS: GLUCOMETER DEV NAME(LOC) 5N.2C; GLUCOSE,POINT OF CARE 161 MG/DL (70-110)
[2022-08-31 20:00] VITALS: BP 122/70
[2022-09-01] VITALS (15 sets, daily range): BP systolic 119–169; BP diastolic 64–106
[2022-09-01] MEDS: GABAPENTIN 100 MG CAPSULE PO SCH ×3 (00:11→16:41)
[2022-09-01 01:01] LABS: GLUCOMETER DEV NAME(LOC) 5N.2C; GLUCOSE,POINT OF CARE 223 MG/DL (70-110)
[2022-09-01] MEDS: MORPHINE SULFATE 2 MG/ML SYRINGE IVP PRN ×2 (01:54→12:57)
[2022-09-01] MEDS: CEFTAROLINE 600 MG/D5W 250 ML IV SCH ×2 (05:26→16:41)
[2022-09-01] MEDS: METOPROLOL TARTRATE 50 MG TABLET PO SCH ×2 (08:06→20:50)
[2022-09-01] MEDS: DIGOXIN 125 MCG TABLET PO SCH (08:06)
[2022-09-01] MEDS: AMIODARONE HCL 200 MG TABLET PO SCH (08:06)
[2022-09-01] MEDS: DOCUSATE SODIUM 100 MG CAPSULE PO SCH ×2 (08:07→20:50)
[2022-09-01] MEDS: FAMOTIDINE 20 MG TABLET PO SCH ×2 (08:07→20:50)
[2022-09-01 08:09] LABS: ANION GAP 8 mmol/L (8-16); CARBON DIOXIDE 27 mmol/L (22-29); CHLORIDE 95 mmol/L (98-107); CREATININE 1.09 mg/dL (0.60-1.30); GLOMERULAR FILTR. RATE CALC > 60 mL/min (>60); GLUCOSE,RANDOM 182 mg/dL (70-110); POTASSIUM 4.5 mmol/L (3.5-5.1); SODIUM SERUM 130 mmol/L (136-145); UREA NITROGEN, BLOOD 8 mg/dL (7-18)
[2022-09-01] MEDS: HEPARIN SODIUM 25000 UNITS/D5W 250 ML IV PRN (08:09)
[2022-09-01 08:12] LABS: PHOSPHORUS 3.5 mg/dL (2.5-4.9)
[2022-09-01 08:18] LABS: EOSINOPHILS % (AUTO) 1.7 % (1.0-6.0); HEMATOCRIT 28.9 % (41-53); HEMOGLOBIN 9.7 g/dL (13.5-17.5); LYMPHOCYTES # (AUTO) 1.2 K/uL (1.0-4.8); LYMPHOCYTES % (AUTO) 14.6 % (22.0-44.0); MEAN CORPUSCULAR HEMOGLOBIN 29.7 pg (26.0-34.0); MEAN CORPUSCULAR HGB CONC 33.5 G/dL (31.0-37.0); MEAN CORPUSCULAR VOLUME 89 fL (80-100); MONOCYTES # (AUTO) 0.8 K/uL (0.1-1.0); NEUTROPHILS # (AUTO) 6.1 K/uL (1.8-7.7); NEUTROPHILS % (AUTO) 72.7 % (40.0-70.0); PLATELET COUNT (AUTO) 669 K/uL (150-450); RED BLOOD CELL COUNT(AUTO) 3.26 MIL/uL (4.50-5.90); RED CELL DISTRIBUTION WIDTH 14.3 % (11.5-14.5)
[2022-09-01 08:27] LABS: INR 1.1 (0.9-1.1); PROTHROMBIN TIME 11.7 SEC (9.4-11.6)
[2022-09-01] MEDS ORDERED: IODIXANOL 320 MG/ML 150 ML VIAL ONE ×2 (08:50→09:10)
[2022-09-01] MEDS ORDERED: HEPARIN SODIUM 1000 UNITS/NS 1,000 ML ONE (08:51)
[2022-09-01] MEDS ORDERED: SODIUM BICARBONATE 50 MEQ/50 ML VIAL ONE (08:52)
[2022-09-01] MEDS ORDERED: MIDAZOLAM HCL 2 MG/2 ML VIAL ONE ×2 (08:52→10:13)
[2022-09-01] MEDS ORDERED: LIDOCAINE/PF 1% 30 ML VIAL ONE (08:52)
[2022-09-01] MEDS ORDERED: FentaNYL CITRATE PF 100 MCG/2 ML VIAL ONE ×2 (08:52→10:49)
[2022-09-01] MEDS ORDERED: HEPARIN SODIUM 2,000 UNITS in HEPARIN SODIUM 1000 UNITS/NS 1,000 ML IARTER ONE (09:00)
[2022-09-01] MEDS ORDERED: IODIXANOL 320 MG/ML 150 ML VIAL IARTER ONE (09:00)
[2022-09-01] MEDS ORDERED: FentaNYL CITRATE PF 100 MCG/2 ML VIAL IVP ONE ×6 (09:00→11:15)
[2022-09-01] MEDS ORDERED: LIDOCAINE 1% 30 ML/SOD BICARB 8.4% 4 ML SQ ONE (09:00)
[2022-09-01] MEDS ORDERED: SODIUM CHLORIDE 0.9% 500 ML IV ONE (09:00)
[2022-09-01] MEDS ORDERED: MIDAZOLAM HCL 2 MG/2 ML VIAL IVP ONE ×4 (09:00→11:15)
[2022-09-01] MEDS ORDERED: HEPARIN SODIUM,PORCINE 1,000 UNITS/ML 10 ML VIAL ONE (10:05)
[2022-09-01] MEDS ORDERED: HEPARIN SODIUM,PORCINE 1,000 UNITS/ML 10 ML VIAL IV ONE ×2 (10:15)
[2022-09-01] MEDS ORDERED: NITROGLYCERIN 50 MG/D5% WATER 250 ML ONE (10:34)
[2022-09-01] MEDS ORDERED: NITROGLYCERIN/D5W 50 MG/250 ML IV BOTTLE ICOR ONE (10:45)
[2022-09-01] MEDS ORDERED: HEPARIN SODIUM,PORCINE 1,000 UNITS/ML 10 ML VIAL ICOR ONE (11:00)
[2022-09-01] MEDS ORDERED: HEPARIN SODIUM,PORCINE 1,000 UNITS/ML 10 ML VIAL IARTER ONE (11:15)
[2022-09-01 12:11] LABS: GLUCOMETER DEV NAME(LOC) 5N.2C; GLUCOSE,POINT OF CARE 149 MG/DL (70-110)
[2022-09-01] MEDS: OxyCODONE HCL/ACETAMINOPHEN 5-325 MG TABLET PO PRN (15:30)
[2022-09-01] MEDS: INSULIN LISPRO 100 UNITS/ML SQ PRN ×2 (18:06→20:54)
[2022-09-01] MEDS: CIPROFLOXACIN 400 MG/D5% WATER 200 ML IV SCH (18:36)
[2022-09-01 21:41] LABS: GLUCOMETER DEV NAME(LOC) 5N.2C; GLUCOSE,POINT OF CARE 196 MG/DL (70-110)
[2022-09-01 21:41] LABS: GLUCOMETER DEV NAME(LOC) 5N.2C; GLUCOSE,POINT OF CARE 167 MG/DL (70-110)
[2022-09-02] VITALS: BP 142/82
[2022-09-02] MEDS: GABAPENTIN 100 MG CAPSULE PO SCH ×4 (00:03→23:38)
[2022-09-02] MEDS: MORPHINE SULFATE 2 MG/ML SYRINGE IVP PRN ×3 (01:49→21:40)
[2022-09-02 04:00] VITALS: BP 152/84
[2022-09-02] MEDS: OxyCODONE HCL/ACETAMINOPHEN 5-325 MG TABLET PO PRN ×2 (05:05→09:18)
[2022-09-02] MEDS: CEFTAROLINE 600 MG/D5W 250 ML IV SCH (05:05)
[2022-09-02] MEDS: INSULIN LISPRO 100 UNITS/ML SQ PRN ×4 (06:04→20:19)
[2022-09-02] MEDS: CIPROFLOXACIN 400 MG/D5% WATER 200 ML IV SCH ×2 (06:32→17:52)
[2022-09-02 08:15] VITALS: BP 151/74
[2022-09-02] MEDS: AMIODARONE HCL 200 MG TABLET PO SCH (08:22)
[2022-09-02] MEDS: FAMOTIDINE 20 MG TABLET PO SCH ×2 (08:23→21:38)
[2022-09-02] MEDS: DIGOXIN 125 MCG TABLET PO SCH (08:23)
[2022-09-02] MEDS: DOCUSATE SODIUM 100 MG CAPSULE PO SCH ×2 (08:23→21:38)
[2022-09-02] MEDS: METOPROLOL TARTRATE 50 MG TABLET PO SCH ×2 (08:23→21:38)
[2022-09-02] MEDS: HEPARIN SODIUM,PORCINE 5,000 UNITS/ML VIAL IVP PRN (09:00)
[2022-09-02] MEDS: HEPARIN SODIUM 25000 UNITS/D5W 250 ML IV PRN ×2 (09:06→23:42)
[2022-09-02 10:41] LABS: GLUCOMETER DEV NAME(LOC) 5N.2C; GLUCOSE,POINT OF CARE 162 MG/DL (70-110)
[2022-09-02 11:42] VITALS: BP 140/83
[2022-09-02 12:21] LABS: GLUCOMETER DEV NAME(LOC) 5S.2C; GLUCOSE,POINT OF CARE 212 MG/DL (70-110)
[2022-09-02] MEDS ORDERED: *CLINICAL-MEROPENEM DOSING CLINICAL ONE (13:00)
[2022-09-02] MEDS ORDERED: MEROPENEM 1 GM in SODIUM CHLORIDE 0.9% 100 ML IV ONE (13:00)
[2022-09-02] MEDS ORDERED: SODIUM CHLORIDE 0.9% 250 ML IV ONE ×2 (14:23→21:48)
[2022-09-02 16:03] VITALS: BP 144/89
[2022-09-02 19:01] LABS: GLUCOMETER DEV NAME(LOC) 5N.2C; GLUCOSE,POINT OF CARE 194 MG/DL (70-110)
[2022-09-02 21:01] VITALS: BP 152/87
[2022-09-02] MEDS: MEROPENEM 1 GM in SODIUM CHLORIDE 0.9% 100 ML IV SCH (21:40)
[2022-09-03 00:23] VITALS: BP 160/95
[2022-09-03 05:01] LABS: GLUCOMETER DEV NAME(LOC) 5N.2C; GLUCOSE,POINT OF CARE 256 MG/DL (70-110)
[2022-09-03] MEDS: CIPROFLOXACIN 400 MG/D5% WATER 200 ML IV SCH ×2 (05:20→17:35)
[2022-09-03] MEDS: MORPHINE SULFATE 2 MG/ML SYRINGE IVP PRN ×2 (05:21→21:02)
[2022-09-03] MEDS: INSULIN LISPRO 100 UNITS/ML SQ PRN ×4 (05:43→21:17)
[2022-09-03 06:01] VITALS: BP 162/90
[2022-09-03] MEDS: MEROPENEM 1 GM in SODIUM CHLORIDE 0.9% 100 ML IV SCH ×3 (06:27→21:04)
[2022-09-03] MEDS: OxyCODONE HCL/ACETAMINOPHEN 5-325 MG TABLET PO PRN ×2 (06:34→23:12)
[2022-09-03 07:55] VITALS: BP 149/86
[2022-09-03] MEDS: AMIODARONE HCL 200 MG TABLET PO SCH (08:12)
[2022-09-03] MEDS: DIGOXIN 125 MCG TABLET PO SCH (08:13)
[2022-09-03] MEDS: GABAPENTIN 100 MG CAPSULE PO SCH ×3 (08:13→23:12)
[2022-09-03] MEDS: FAMOTIDINE 20 MG TABLET PO SCH ×2 (08:13→21:01)
[2022-09-03] MEDS: DOCUSATE SODIUM 100 MG CAPSULE PO SCH ×2 (08:14→21:01)
[2022-09-03] MEDS: METOPROLOL TARTRATE 50 MG TABLET PO SCH ×2 (08:14→21:01)
[2022-09-03 09:05] LABS: BASOPHILS % (AUTO) 1.7 % (0.0-2.0); EOSINOPHILS % (AUTO) 0.6 % (1.0-6.0); HEMATOCRIT 25.2 % (41-53); HEMOGLOBIN 8.7 g/dL (13.5-17.5); LYMPHOCYTES % (AUTO) 12.2 % (22.0-44.0); MEAN CORPUSCULAR HEMOGLOBIN 30.5 pg (26.0-34.0); MEAN CORPUSCULAR HGB CONC 34.4 G/dL (31.0-37.0); MEAN CORPUSCULAR VOLUME 89 fL (80-100); MONOCYTES # (AUTO) 0.9 K/uL (0.1-1.0); NEUTROPHILS # (AUTO) 6.4 K/uL (1.8-7.7); NEUTROPHILS % (AUTO) 74.5 % (40.0-70.0); PLATELET COUNT (AUTO) 437 K/uL (150-450); RED BLOOD CELL COUNT(AUTO) 2.84 MIL/uL (4.50-5.90); RED CELL DISTRIBUTION WIDTH 14.1 % (11.5-14.5)
[2022-09-03] MEDS: HEPARIN SODIUM 25000 UNITS/D5W 250 ML IV PRN ×2 (09:32→17:34)
[2022-09-03 11:50] VITALS: BP 150/75
[2022-09-03 16:47] VITALS: BP 154/116
[2022-09-03] MEDS: HEPARIN SODIUM,PORCINE 5,000 UNITS/ML VIAL IVP PRN (17:19)
[2022-09-03 17:52] LABS: GLUCOMETER DEV NAME(LOC) 5S.2C; GLUCOSE,POINT OF CARE 205 MG/DL (70-110)
[2022-09-03 17:52] LABS: GLUCOMETER DEV NAME(LOC) 5S.2C; GLUCOSE,POINT OF CARE 299 MG/DL (70-110)
[2022-09-03 20:21] LABS: GLUCOMETER DEV NAME(LOC) 5N.2C; GLUCOSE,POINT OF CARE 153 MG/DL (70-110)
[2022-09-03] MEDS ORDERED: SODIUM CHLORIDE 0.9% 250 ML IV ONE (20:49)
[2022-09-03 21:00] VITALS: BP 155/93
[2022-09-04 05:00] VITALS: BP 137/94
[2022-09-04] MEDS: CIPROFLOXACIN 400 MG/D5% WATER 200 ML IV SCH ×2 (05:45→17:07)
[2022-09-04] MEDS: MORPHINE SULFATE 2 MG/ML SYRINGE IVP PRN ×2 (05:45→23:29)
[2022-09-04] MEDS: MEROPENEM 1 GM in SODIUM CHLORIDE 0.9% 100 ML IV SCH ×3 (06:53→21:22)
[2022-09-04 08:16] LABS: GLUCOMETER DEV NAME(LOC) 5S.2C; GLUCOSE,POINT OF CARE 135 MG/DL (70-110)
[2022-09-04 08:16] LABS: GLUCOMETER DEV NAME(LOC) 5S.2C; GLUCOSE,POINT OF CARE 185 MG/DL (70-110)
[2022-09-04 08:40] VITALS: BP 156/95
[2022-09-04] MEDS: DOCUSATE SODIUM 100 MG CAPSULE PO SCH ×2 (09:46→20:23)
[2022-09-04] MEDS: METOPROLOL TARTRATE 50 MG TABLET PO SCH ×2 (09:46→20:21)
[2022-09-04] MEDS: DIGOXIN 125 MCG TABLET PO SCH (09:46)
[2022-09-04] MEDS: FAMOTIDINE 20 MG TABLET PO SCH ×2 (09:47→20:21)
[2022-09-04] MEDS: AMIODARONE HCL 200 MG TABLET PO SCH (09:47)
[2022-09-04] MEDS: GABAPENTIN 100 MG CAPSULE PO SCH ×3 (09:47→23:28)
[2022-09-04] MEDS: HEPARIN SODIUM 25000 UNITS/D5W 250 ML IV PRN (09:49)
[2022-09-04] MEDS: OxyCODONE HCL/ACETAMINOPHEN 5-325 MG TABLET PO PRN ×2 (11:52→20:21)
[2022-09-04 12:02] VITALS: BP 152/78
[2022-09-04] MEDS: INSULIN LISPRO 100 UNITS/ML SQ PRN ×3 (12:36→20:22)
[2022-09-04 16:10] VITALS: BP 159/87
[2022-09-04 19:47] VITALS: BP 162/91
[2022-09-04 20:05] LABS: GLUCOMETER DEV NAME(LOC) 5N.2C; GLUCOSE,POINT OF CARE 183 MG/DL (70-110)
[2022-09-04 20:05] LABS: GLUCOMETER DEV NAME(LOC) 5N.2C; GLUCOSE,POINT OF CARE 259 MG/DL (70-110)
[2022-09-04 21:51] LABS: GLUCOMETER DEV NAME(LOC) 5N.2C; GLUCOSE,POINT OF CARE 194 MG/DL (70-110)
[2022-09-04 23:47] VITALS: BP 156/91
[2022-09-05] MEDS: HEPARIN SODIUM 25000 UNITS/D5W 250 ML IV PRN (00:15)
[2022-09-05 04:04] VITALS: BP 154/115
[2022-09-05] MEDS: MEROPENEM 1 GM in SODIUM CHLORIDE 0.9% 100 ML IV SCH ×3 (05:05→21:02)
[2022-09-05] MEDS: MORPHINE SULFATE 2 MG/ML SYRINGE IVP PRN (05:07)
[2022-09-05] MEDS: CIPROFLOXACIN 400 MG/D5% WATER 200 ML IV SCH ×2 (05:53→19:32)
[2022-09-05] MEDS: INSULIN LISPRO 100 UNITS/ML SQ PRN ×3 (06:07→20:15)
[2022-09-05 06:21] LABS: GLUCOMETER DEV NAME(LOC) 5S.2C; GLUCOSE,POINT OF CARE 152 MG/DL (70-110)
[2022-09-05 07:27] LABS: ALANINE AMINOTRANSFERASE 18 U/L (12-78); ALBUMIN 2.2 g/dL (3.4-5.0); ALKALINE PHOSPHATASE 95 U/L (46-116); ANION GAP 8 mmol/L (8-16); ASPARTATE AMINOTRANSFERASE 18 U/L (15-37); BILIRUBIN,TOTAL 0.4 mg/dL (0.1-1.0); C-REACTIVE PROTEIN QUANT 11.01 mg/dL (0.00-0.30); CALCIUM, TOTAL 9.2 mg/dL (8.8-10.5); CARBON DIOXIDE 27 mmol/L (22-29); CHLORIDE 95 mmol/L (98-107); CREATININE 1.15 mg/dL (0.60-1.30); GLOMERULAR FILTR. RATE CALC > 60 mL/min (>60); GLUCOSE,RANDOM 155 mg/dL (70-110); POTASSIUM 5.3 mmol/L (3.5-5.1); SODIUM SERUM 130 mmol/L (136-145); TOTAL PROTEIN, SERUM 7.3 g/dL (6.4-8.2); UREA NITROGEN, BLOOD 7 mg/dL (7-18)
[2022-09-05] MEDS: OxyCODONE HCL/ACETAMINOPHEN 5-325 MG TABLET PO PRN ×2 (07:56→20:52)
[2022-09-05] MEDS: HEPARIN SODIUM,PORCINE 5,000 UNITS/ML VIAL IVP PRN (07:58)
[2022-09-05 08:10] VITALS: BP 135/82
[2022-09-05] MEDS: DOCUSATE SODIUM 100 MG CAPSULE PO SCH ×2 (09:31→20:50)
[2022-09-05] MEDS: AMIODARONE HCL 200 MG TABLET PO SCH (09:31)
[2022-09-05] MEDS: FAMOTIDINE 20 MG TABLET PO SCH ×2 (09:32→20:50)
[2022-09-05] MEDS: GABAPENTIN 100 MG CAPSULE PO SCH ×3 (09:32→22:54)
[2022-09-05] MEDS: METOPROLOL TARTRATE 50 MG TABLET PO SCH ×2 (09:32→20:50)
[2022-09-05] MEDS: DIGOXIN 125 MCG TABLET PO SCH (09:33)
[2022-09-05 11:34] VITALS: BP 161/97
[2022-09-05 16:11] VITALS: BP 147/83
[2022-09-05] MEDS ORDERED: DEXTROSE 50%-WATER 25 GM/50 ML SYRINGE IVP PRN (20:15)
[2022-09-05 20:16] LABS: GLUCOMETER DEV NAME(LOC) 5S.2C; GLUCOSE,POINT OF CARE 263 MG/DL (70-110)
[2022-09-05 20:16] LABS: GLUCOMETER DEV NAME(LOC) 5S.2C; GLUCOSE,POINT OF CARE 455 MG/DL (70-110)
[2022-09-05] MEDS: INSULIN GLARGINE,HUM.REC.ANLOG 100 UNITS/ML SQ SCH (20:16)
[2022-09-05 20:38] VITALS: BP 156/84
[2022-09-06 00:48] VITALS: BP 149/75
[2022-09-06] MEDS: MEROPENEM 1 GM in SODIUM CHLORIDE 0.9% 100 ML IV SCH ×3 (04:34→21:17)
[2022-09-06] MEDS: OxyCODONE HCL/ACETAMINOPHEN 5-325 MG TABLET PO PRN (04:41)
[2022-09-06 05:22] VITALS: BP 159/88
[2022-09-06] MEDS: CIPROFLOXACIN 400 MG/D5% WATER 200 ML IV SCH ×2 (05:35→19:19)
[2022-09-06] MEDS: INSULIN LISPRO 100 UNITS/ML SQ PRN ×2 (05:42→20:37)
[2022-09-06 05:51] LABS: GLUCOMETER DEV NAME(LOC) 5N.2C; GLUCOSE,POINT OF CARE 190 MG/DL (70-110)
[2022-09-06 05:56] LABS: GLUCOMETER DEV NAME(LOC) 5N.2C; GLUCOSE,POINT OF CARE 175 MG/DL (70-110)
[2022-09-06 06:43] LABS: BASOPHILS % (AUTO) 0.3 % (0.0-2.0); HEMATOCRIT 26.8 % (41-53); HEMOGLOBIN 9.3 g/dL (13.5-17.5); LYMPHOCYTES # (AUTO) 1.5 K/uL (1.0-4.8); LYMPHOCYTES % (AUTO) 10.6 % (22.0-44.0); MEAN CORPUSCULAR HEMOGLOBIN 29.6 pg (26.0-34.0); MEAN CORPUSCULAR HGB CONC 34.7 G/dL (31.0-37.0); MEAN CORPUSCULAR VOLUME 85 fL (80-100); MONOCYTES # (AUTO) 1.1 K/uL (0.1-1.0); MONOCYTES % (AUTO) 7.9 % (2.0-9.0); NEUTROPHILS # (AUTO) 11.4 K/uL (1.8-7.7); NEUTROPHILS % (AUTO) 80.2 % (40.0-70.0); PLATELET COUNT (AUTO) 411 K/uL (150-450); RED BLOOD CELL COUNT(AUTO) 3.14 MIL/uL (4.50-5.90); RED CELL DISTRIBUTION WIDTH 14.8 % (11.5-14.5)
[2022-09-06 07:13] VITALS: BP 158/93
[2022-09-06] MEDS: GABAPENTIN 100 MG CAPSULE PO SCH ×3 (08:54→23:26)
[2022-09-06] MEDS: METOPROLOL TARTRATE 50 MG TABLET PO SCH ×2 (08:54→20:39)
[2022-09-06] MEDS: FAMOTIDINE 20 MG TABLET PO SCH ×2 (08:54→20:39)
[2022-09-06] MEDS: DIGOXIN 125 MCG TABLET PO SCH (08:54)
[2022-09-06] MEDS: DOCUSATE SODIUM 100 MG CAPSULE PO SCH ×2 (08:54→20:38)
[2022-09-06] MEDS: AMIODARONE HCL 200 MG TABLET PO SCH (08:54)
[2022-09-06 10:53] LABS: INR 1.2 (0.9-1.1); PROTHROMBIN TIME 12.4 SEC (9.4-11.6)
[2022-09-06 10:54] LABS: ALANINE AMINOTRANSFERASE 22 U/L (12-78); ALBUMIN 2.1 g/dL (3.4-5.0); ALKALINE PHOSPHATASE 87 U/L (46-116); ANION GAP 7 mmol/L (8-16); ASPARTATE AMINOTRANSFERASE 25 U/L (15-37); BILIRUBIN,TOTAL 0.5 mg/dL (0.1-1.0); CARBON DIOXIDE 27 mmol/L (22-29); CHLORIDE 90 mmol/L (98-107); CREATININE 1.05 mg/dL (0.60-1.30); GLOMERULAR FILTR. RATE CALC > 60 mL/min (>60); GLUCOSE,RANDOM 170 mg/dL (70-110); POTASSIUM 4.7 mmol/L (3.5-5.1); TOTAL PROTEIN, SERUM 7.4 g/dL (6.4-8.2); UREA NITROGEN, BLOOD 7 mg/dL (7-18)
[2022-09-06 11:03] LABS: SODIUM SERUM 124 mmol/L (136-145)
[2022-09-06 11:13] LABS: C-REACTIVE PROTEIN QUANT 13.81 mg/dL (0.00-0.30)
[2022-09-06 11:25] VITALS: BP 117/68
[2022-09-06 12:04] LABS: ANION GAP 4 mmol/L (8-16); CALCIUM, TOTAL 8.5 mg/dL (8.8-10.5); CARBON DIOXIDE 25 mmol/L (22-29); CHLORIDE 91 mmol/L (98-107); GLOMERULAR FILTR. RATE CALC > 60 mL/min (>60); GLUCOSE,RANDOM 172 mg/dL (70-110); POTASSIUM 4.8 mmol/L (3.5-5.1); UREA NITROGEN, BLOOD 7 mg/dL (7-18)
[2022-09-06 12:07] LABS: INR 1.2 (0.9-1.1); PROTHROMBIN TIME 12.5 SEC (9.4-11.6)
[2022-09-06 12:08] LABS: SODIUM SERUM 120 mmol/L (136-145)
[2022-09-06 12:26] LABS: GLUCOMETER DEV NAME(LOC) 5N.1C; GLUCOSE,POINT OF CARE 176 MG/DL (70-110)
[2022-09-06] MEDS ORDERED: RINGERS SOLUTION,LACTATED 1,000 ML IV ONE (16:11)
[2022-09-06 16:13] LABS: MAGNESIUM 1.4 mg/dL (1.80-2.40)
[2022-09-06] MEDS: MORPHINE SULFATE 2 MG/ML SYRINGE IVP PRN (16:13)
[2022-09-06] MEDS ORDERED: BACITRACIN 28 GM OINTMENT TP ONE (16:20)
[2022-09-06] MEDS ORDERED: GELATIN SPONGE,ABSORBABLE 100 MM TP ONE (16:20)
[2022-09-06] MEDS ORDERED: LIDOCAINE/PF 1% 30 ML VIAL ONE (16:44)
[2022-09-06] MEDS ORDERED: BUPIVACAINE HCL/PF 0.5% 30 ML VIAL ONE (16:44)
[2022-09-06] MEDS ORDERED: SODIUM CHLORIDE 0.9% 1,000 ML ONE (16:50)
[2022-09-06] MEDS ORDERED: SUGAMMADEX SODIUM 200 MG/2 ML VIAL IVP ONE (18:33)
[2022-09-06] MEDS ORDERED: HYDROmorphone HCL 2 MG/ML SYRINGE IVP PRN (19:00)
[2022-09-06] MEDS ORDERED: ACETAMINOPHEN 1000 MG/ISO-OSM 100 ML IV ONE ×2 (19:00→19:16)
[2022-09-06] MEDS ORDERED: FentaNYL CITRATE PF 100 MCG/2 ML VIAL IVP PRN (19:00)
[2022-09-06] MEDS ORDERED: SODIUM CHLORIDE 0.9% 1,000 ML IV SCH (19:30)
[2022-09-06] MEDS ORDERED: HYDROmorphone HCL 2 MG/ML SYRINGE ONE (19:33)
[2022-09-06] MEDS: INSULIN GLARGINE,HUM.REC.ANLOG 100 UNITS/ML SQ SCH (20:35)
[2022-09-06] MEDS: OXYGEN THERAPY IH SCH (20:39)
[2022-09-06 21:09] VITALS: BP 165/96
[2022-09-06 23:10] VITALS: BP 146/81
[2022-09-06 23:31] LABS: ANION GAP 6 mmol/L (8-16); CARBON DIOXIDE 24 mmol/L (22-29); CHLORIDE 93 mmol/L (98-107); CREATININE 1.04 mg/dL (0.60-1.30); GLOMERULAR FILTR. RATE CALC > 60 mL/min (>60); GLUCOSE,RANDOM 145 mg/dL (70-110); POTASSIUM 4.7 mmol/L (3.5-5.1); UREA NITROGEN, BLOOD 7 mg/dL (7-18)
[2022-09-06 23:33] LABS: SODIUM SERUM 123 mmol/L (136-145)
[2022-09-06] MEDS ORDERED: SODIUM CHLORIDE 3% 500 ML IV SCH (23:45)
[2022-09-07 03:57] VITALS: BP 154/85
[2022-09-07] MEDS: CIPROFLOXACIN 400 MG/D5% WATER 200 ML IV SCH ×2 (05:03→22:56)
[2022-09-07] MEDS ORDERED: FentaNYL CITRATE PF 100 MCG/2 ML VIAL IVP ONE (05:28)
[2022-09-07] MEDS ORDERED: PHENYLEPHRINE HCL 10 MG/ML VIAL IVP ONE (05:28)
[2022-09-07] MEDS ORDERED: PROPOFOL 1% 20 ML VIAL IVP ONE (05:28)
[2022-09-07] MEDS ORDERED: 0.9% SODIUM CHLORIDE 10 ML VIAL IVP ONE (05:28)
[2022-09-07] MEDS ORDERED: LIDOCAINE/PF 2% 5 ML VIAL IM ONE (05:28)
[2022-09-07] MEDS ORDERED: ROCURONIUM BROMIDE 10 MG/ML 5 ML VIAL IVP ONE (05:28)
[2022-09-07] MEDS ORDERED: ONDANSETRON HCL 4 MG/2 ML VIAL IVP ONE (05:28)
[2022-09-07 06:14] LABS: BASOPHILS % (AUTO) 0.9 % (0.0-2.0); EOSINOPHILS % (AUTO) 0.8 % (1.0-6.0); HEMATOCRIT 25.1 % (41-53); LYMPHOCYTES # (AUTO) 1.1 K/uL (1.0-4.8); LYMPHOCYTES % (AUTO) 14.6 % (22.0-44.0); MEAN CORPUSCULAR HEMOGLOBIN 30.5 pg (26.0-34.0); MEAN CORPUSCULAR VOLUME 85 fL (80-100); MONOCYTES # (AUTO) 0.7 K/uL (0.1-1.0); MONOCYTES % (AUTO) 9.1 % (2.0-9.0); NEUTROPHILS # (AUTO) 5.5 K/uL (1.8-7.7); NEUTROPHILS % (AUTO) 74.6 % (40.0-70.0); PLATELET COUNT (AUTO) 357 K/uL (150-450); RED BLOOD CELL COUNT(AUTO) 2.95 MIL/uL (4.50-5.90); RED CELL DISTRIBUTION WIDTH 14.4 % (11.5-14.5)
[2022-09-07 06:34] LABS: ANION GAP 7 mmol/L (8-16); CALCIUM, TOTAL 8.8 mg/dL (8.8-10.5); CARBON DIOXIDE 26 mmol/L (22-29); CHLORIDE 96 mmol/L (98-107); CREATININE 1.04 mg/dL (0.60-1.30); GLOMERULAR FILTR. RATE CALC > 60 mL/min (>60); GLUCOSE,RANDOM 146 mg/dL (70-110); PHOSPHORUS 3.5 mg/dL (2.5-4.9); POTASSIUM 4.5 mmol/L (3.5-5.1); SODIUM SERUM 129 mmol/L (136-145); THYROID STIMULATING HORMONE 3.38 uIU/mL (0.36-3.74); UREA NITROGEN, BLOOD 7 mg/dL (7-18)
[2022-09-07] MEDS: MEROPENEM 1 GM in SODIUM CHLORIDE 0.9% 100 ML IV SCH (06:54)
[2022-09-07] MEDS: ACETAMINOPHEN 325 MG TABLET PO PRN ×2 (06:55→12:08)
[2022-09-07] MEDS: INSULIN LISPRO 100 UNITS/ML SQ PRN ×4 (06:55→20:20)
[2022-09-07 07:58] VITALS: BP 148/97
[2022-09-07] MEDS: HEPARIN SODIUM,PORCINE 5,000 UNITS/ML VIAL SQ SCH ×3 (08:50→20:33)
[2022-09-07] MEDS: FAMOTIDINE 20 MG TABLET PO SCH ×2 (08:51→20:14)
[2022-09-07] MEDS: DOCUSATE SODIUM 100 MG CAPSULE PO SCH ×2 (08:51→20:30)
[2022-09-07] MEDS: DIGOXIN 125 MCG TABLET PO SCH (08:51)
[2022-09-07] MEDS: METOPROLOL TARTRATE 50 MG TABLET PO SCH ×2 (08:51→20:14)
[2022-09-07] MEDS: AMIODARONE HCL 200 MG TABLET PO SCH (08:51)
[2022-09-07] MEDS: OXYGEN THERAPY IH SCH ×2 (09:06→20:14)
[2022-09-07] MEDS ORDERED: MAGNESIUM SULFATE 2 GM/WATER 50 ML IV ONE (09:15)
[2022-09-07 09:46] LABS: GLUCOMETER DEV NAME(LOC) 5N.2C; GLUCOSE,POINT OF CARE 127 MG/DL (70-110)
[2022-09-07 09:46] LABS: GLUCOMETER DEV NAME(LOC) 5N.2C; GLUCOSE,POINT OF CARE 194 MG/DL (70-110)
[2022-09-07 12:32] LABS: ANION GAP 7 mmol/L (8-16); CALCIUM, TOTAL 8.6 mg/dL (8.8-10.5); CARBON DIOXIDE 25 mmol/L (22-29); CHLORIDE 96 mmol/L (98-107); CREATININE 1.09 mg/dL (0.60-1.30); GLOMERULAR FILTR. RATE CALC > 60 mL/min (>60); GLUCOSE,RANDOM 209 mg/dL (70-110); POTASSIUM 4.6 mmol/L (3.5-5.1); SODIUM SERUM 128 mmol/L (136-145); UREA NITROGEN, BLOOD 8 mg/dL (7-18)
[2022-09-07 12:42] VITALS: BP 137/68
[2022-09-07] MEDS: GABAPENTIN 100 MG CAPSULE PO SCH ×2 (13:30→16:49)
[2022-09-07] MEDS: OxyCODONE HCL/ACETAMINOPHEN 5-325 MG TABLET PO PRN ×2 (13:39→20:14)
[2022-09-07 15:53] VITALS: BP 150/87
[2022-09-07 19:29] VITALS: BP 134/72
[2022-09-07] MEDS: INSULIN GLARGINE,HUM.REC.ANLOG 100 UNITS/ML SQ SCH (20:19)
[2022-09-07 22:31] LABS: GLUCOMETER DEV NAME(LOC) 5N.1C; GLUCOSE,POINT OF CARE 226 MG/DL (70-110)
[2022-09-07 22:31] LABS: GLUCOMETER DEV NAME(LOC) 5N.1C; GLUCOSE,POINT OF CARE 167 MG/DL (70-110)
[2022-09-07 23:33] VITALS: BP 141/72
[2022-09-08] MEDS: MEROPENEM 1 GM in SODIUM CHLORIDE 0.9% 100 ML IV SCH ×3 (00:48→17:49)
[2022-09-08] MEDS: GABAPENTIN 100 MG CAPSULE PO SCH ×3 (00:48→16:55)
[2022-09-08] MEDS: MORPHINE SULFATE 2 MG/ML SYRINGE IVP PRN ×3 (02:25→20:31)
[2022-09-08 04:27] VITALS: BP 139/82
[2022-09-08] MEDS: OxyCODONE HCL/ACETAMINOPHEN 5-325 MG TABLET PO PRN ×2 (05:37→09:33)
[2022-09-08 06:56] LABS: GLUCOMETER DEV NAME(LOC) 5S.1B; GLUCOSE,POINT OF CARE 178 MG/DL (70-110)
[2022-09-08 06:56] LABS: GLUCOMETER DEV NAME(LOC) 5S.1B; GLUCOSE,POINT OF CARE 116 MG/DL (70-110)
[2022-09-08 06:57] LABS: ANION GAP 10 mmol/L (8-16); CALCIUM, TOTAL 8.9 mg/dL (8.8-10.5); CARBON DIOXIDE 26 mmol/L (22-29); CHLORIDE 108 mmol/L (98-107); CREATININE 1.18 mg/dL (0.60-1.30); GLOMERULAR FILTR. RATE CALC > 60 mL/min (>60); GLUCOSE,RANDOM 116 mg/dL (70-110); POTASSIUM 4.8 mmol/L (3.5-5.1); SODIUM SERUM 144 mmol/L (136-145); UREA NITROGEN, BLOOD 8 mg/dL (7-18)
[2022-09-08 07:34] VITALS: BP 147/87
[2022-09-08] MEDS: OXYGEN THERAPY IH SCH ×2 (08:00→20:24)
[2022-09-08] MEDS: METOPROLOL TARTRATE 50 MG TABLET PO SCH ×2 (09:23→20:28)
[2022-09-08] MEDS: AMIODARONE HCL 200 MG TABLET PO SCH (09:23)
[2022-09-08] MEDS: DOCUSATE SODIUM 100 MG CAPSULE PO SCH ×2 (09:23→20:27)
[2022-09-08] MEDS: FAMOTIDINE 20 MG TABLET PO SCH ×2 (09:24→20:28)
[2022-09-08] MEDS: HEPARIN SODIUM,PORCINE 5,000 UNITS/ML VIAL SQ SCH (09:24)
[2022-09-08] MEDS: DIGOXIN 125 MCG TABLET PO SCH (09:24)
[2022-09-08] MEDS: CIPROFLOXACIN 400 MG/D5% WATER 200 ML IV SCH ×2 (11:16→23:31)
[2022-09-08 11:17] VITALS: BP 109/61
[2022-09-08 11:47] LABS: GLUCOMETER DEV NAME(LOC) 5S.1B; GLUCOSE,POINT OF CARE 177 MG/DL (70-110)
[2022-09-08 11:55] LABS: BAND NEUTROPHILS % (MANUAL) 0 % (0-5)
[2022-09-08] MEDS: INSULIN LISPRO 100 UNITS/ML SQ PRN ×2 (11:57→17:53)
[2022-09-08 11:58] LABS: HEMOGLOBIN 9.6 g/dL (13.5-17.5); MEAN CORPUSCULAR HEMOGLOBIN 29.4 pg (26.0-34.0); MEAN CORPUSCULAR HGB CONC 34.1 G/dL (31.0-37.0); MEAN CORPUSCULAR VOLUME 86 fL (80-100); PLATELET COUNT (AUTO) 393 K/uL (150-450); RED BLOOD CELL COUNT(AUTO) 3.25 MIL/uL (4.50-5.90); RED CELL DISTRIBUTION WIDTH 14.4 % (11.5-14.5)
[2022-09-08] MEDS ORDERED: HEPARIN SODIUM,PORCINE 5,000 UNITS/ML VIAL IVP PRN (12:15)
[2022-09-08 12:21] LABS: BASOPHILS % (MANUAL) 2 % (0-2); LYMPHOCYTES % (MANUAL) 9 % (22-44); MONOCYTES % (MANUAL) 8 % (2-9); REACTIVE LYMPHOCYTES 1 % (0-0); SEGMENTED NEUTROPHILS % 80 % (40-70)
[2022-09-08 12:30] LABS: EOSINOPHILS % (AUTO) 2 % (1.0-6.0); MONOCYTES # (AUTO) 0.7 K/uL (0.1-1.0); NEUTROPHILS # (AUTO) 5.8 K/uL (1.8-7.7)
[2022-09-08 12:31] LABS: INR 1.1 (0.9-1.1); PROTHROMBIN TIME 11.9 SEC (9.4-11.6)
[2022-09-08] MEDS ORDERED: HEPARIN SODIUM,PORCINE 5,000 UNITS/ML VIAL IVP ONE (13:00)
[2022-09-08] MEDS: HEPARIN SODIUM 25000 UNITS/D5W 250 ML IV PRN (14:31)
[2022-09-08 14:39] LABS: C-REACTIVE PROTEIN QUANT 6.36 mg/dL (0.00-0.30)
[2022-09-08 15:32] VITALS: BP 130/78
[2022-09-08 20:15] VITALS: BP 145/89
[2022-09-08] MEDS: INSULIN GLARGINE,HUM.REC.ANLOG 100 UNITS/ML SQ SCH (20:31)
[2022-09-08 21:06] LABS: GLUCOMETER DEV NAME(LOC) 5N.1C; GLUCOSE,POINT OF CARE 215 MG/DL (70-110)
[2022-09-08 21:46] LABS: GLUCOMETER DEV NAME(LOC) 5S.1B; GLUCOSE,POINT OF CARE 165 MG/DL (70-110)
[2022-09-09] MEDS: MEROPENEM 1 GM in SODIUM CHLORIDE 0.9% 100 ML IV SCH ×3 (00:37→17:00)
[2022-09-09] MEDS: GABAPENTIN 100 MG CAPSULE PO SCH ×3 (00:37→17:15)
[2022-09-09 00:48] VITALS: BP 136/75
[2022-09-09] MEDS: HEPARIN SODIUM,PORCINE 5,000 UNITS/ML VIAL IVP PRN (03:35)
[2022-09-09 03:40] VITALS: BP 139/77
[2022-09-09 05:37] LABS: GLUCOMETER DEV NAME(LOC) 5N.2C; GLUCOSE,POINT OF CARE 161 MG/DL (70-110)
[2022-09-09 07:08] LABS: BASOPHILS % (AUTO) 0.7 % (0.0-2.0); EOSINOPHILS % (AUTO) 1.8 % (1.0-6.0); HEMOGLOBIN 9.7 g/dL (13.5-17.5); LYMPHOCYTES # (AUTO) 1.4 K/uL (1.0-4.8); LYMPHOCYTES % (AUTO) 15.4 % (22.0-44.0); MEAN CORPUSCULAR HEMOGLOBIN 29.5 pg (26.0-34.0); MEAN CORPUSCULAR HGB CONC 34.6 G/dL (31.0-37.0); MEAN CORPUSCULAR VOLUME 85 fL (80-100); MONOCYTES # (AUTO) 0.8 K/uL (0.1-1.0); MONOCYTES % (AUTO) 8.6 % (2.0-9.0); NEUTROPHILS # (AUTO) 6.5 K/uL (1.8-7.7); NEUTROPHILS % (AUTO) 73.5 % (40.0-70.0); PLATELET COUNT (AUTO) 335 K/uL (150-450); RED BLOOD CELL COUNT(AUTO) 3.29 MIL/uL (4.50-5.90); RED CELL DISTRIBUTION WIDTH 14.9 % (11.5-14.5)
[2022-09-09 07:47] VITALS: BP 144/88
[2022-09-09] MEDS: FAMOTIDINE 20 MG TABLET PO SCH ×2 (07:47→20:15)
[2022-09-09] MEDS: DOCUSATE SODIUM 100 MG CAPSULE PO SCH ×2 (07:47→20:15)
[2022-09-09] MEDS: AMIODARONE HCL 200 MG TABLET PO SCH (07:47)
[2022-09-09] MEDS: DIGOXIN 125 MCG TABLET PO SCH (07:47)
[2022-09-09] MEDS: METOPROLOL TARTRATE 50 MG TABLET PO SCH ×2 (07:47→20:15)
[2022-09-09] MEDS: MORPHINE SULFATE 2 MG/ML SYRINGE IVP PRN (07:48)
[2022-09-09] MEDS: OXYGEN THERAPY IH SCH ×2 (08:00→20:14)
[2022-09-09 11:08] LABS: CREATININE 1.2 mg/dL (0.60-1.30)
[2022-09-09] MEDS: CIPROFLOXACIN 400 MG/D5% WATER 200 ML IV SCH ×2 (11:29→22:31)
[2022-09-09 11:43] VITALS: BP 137/73
[2022-09-09] MEDS: INSULIN LISPRO 100 UNITS/ML SQ PRN ×2 (11:56→17:30)
[2022-09-09] MEDS: OxyCODONE HCL/ACETAMINOPHEN 5-325 MG TABLET PO PRN (12:26)
[2022-09-09 15:29] VITALS: BP 154/87
[2022-09-09 20:00] VITALS: BP 128/74
[2022-09-09 20:06] LABS: GLUCOMETER DEV NAME(LOC) 5S.1B; GLUCOSE,POINT OF CARE 205 MG/DL (70-110)
[2022-09-09 20:07] LABS: GLUCOMETER DEV NAME(LOC) 5S.1B; GLUCOSE,POINT OF CARE 146 MG/DL (70-110)
[2022-09-09] MEDS: INSULIN GLARGINE,HUM.REC.ANLOG 100 UNITS/ML SQ SCH (20:15)
[2022-09-09] MEDS: SODIUM CHLORIDE 1 GM TABLET PO SCH (20:15)
[2022-09-09] MEDS: HEPARIN SODIUM 25000 UNITS/D5W 250 ML IV PRN (20:26)
[2022-09-10 00:31] VITALS: BP 147/72
[2022-09-10] MEDS: MEROPENEM 1 GM in SODIUM CHLORIDE 0.9% 100 ML IV SCH ×4 (00:47→23:57)
[2022-09-10] MEDS: GABAPENTIN 100 MG CAPSULE PO SCH ×4 (00:47→23:57)
[2022-09-10 04:10] VITALS: BP 157/92
[2022-09-10] MEDS: OxyCODONE HCL/ACETAMINOPHEN 5-325 MG TABLET PO PRN ×3 (04:31→20:36)
[2022-09-10 07:32] VITALS: BP 144/86
[2022-09-10 07:38] LABS: BASOPHILS % (AUTO) 0.8 % (0.0-2.0); EOSINOPHILS % (AUTO) 2.6 % (1.0-6.0); HEMOGLOBIN 9.6 g/dL (13.5-17.5); LYMPHOCYTES # (AUTO) 1.4 K/uL (1.0-4.8); LYMPHOCYTES % (AUTO) 17.9 % (22.0-44.0); MEAN CORPUSCULAR HEMOGLOBIN 29.2 pg (26.0-34.0); MEAN CORPUSCULAR HGB CONC 34.2 G/dL (31.0-37.0); MEAN CORPUSCULAR VOLUME 85 fL (80-100); MONOCYTES # (AUTO) 0.7 K/uL (0.1-1.0); MONOCYTES % (AUTO) 9.2 % (2.0-9.0); NEUTROPHILS # (AUTO) 5.3 K/uL (1.8-7.7); NEUTROPHILS % (AUTO) 69.5 % (40.0-70.0); PLATELET COUNT (AUTO) 394 K/uL (150-450); RED BLOOD CELL COUNT(AUTO) 3.29 MIL/uL (4.50-5.90); RED CELL DISTRIBUTION WIDTH 15.1 % (11.5-14.5)
[2022-09-10 07:58] LABS: ALBUMIN 2.1 g/dL (3.4-5.0); BILIRUBIN,TOTAL 0.3 mg/dL (0.1-1.0); CALCIUM, TOTAL 8.9 mg/dL (8.8-10.5); CREATININE 1.2 mg/dL (0.60-1.30); POTASSIUM 4.7 mmol/L (3.5-5.1); TOTAL PROTEIN, SERUM 6.7 g/dL (6.4-8.2)
[2022-09-10] MEDS: OXYGEN THERAPY IH SCH (08:38)
[2022-09-10] MEDS: DIGOXIN 125 MCG TABLET PO SCH (08:41)
[2022-09-10] MEDS: SODIUM CHLORIDE 1 GM TABLET PO SCH ×2 (08:41→20:30)
[2022-09-10] MEDS: AMIODARONE HCL 200 MG TABLET PO SCH (08:41)
[2022-09-10] MEDS: METOPROLOL TARTRATE 50 MG TABLET PO SCH ×2 (08:41→20:29)
[2022-09-10] MEDS: DOCUSATE SODIUM 100 MG CAPSULE PO SCH ×2 (08:41→20:29)
[2022-09-10] MEDS: FAMOTIDINE 20 MG TABLET PO SCH ×2 (08:41→20:30)
[2022-09-10 08:56] LABS: GLUCOMETER DEV NAME(LOC) 5N.1C; GLUCOSE,POINT OF CARE 214 MG/DL (70-110)
[2022-09-10 11:25] VITALS: BP 110/66
[2022-09-10] MEDS: CIPROFLOXACIN 400 MG/D5% WATER 200 ML IV SCH (11:37)
[2022-09-10] MEDS: HEPARIN SODIUM 25000 UNITS/D5W 250 ML IV PRN (11:39)
[2022-09-10] MEDS: INSULIN LISPRO 100 UNITS/ML SQ PRN ×3 (12:13→20:37)
[2022-09-10 15:47] VITALS: BP 114/70
[2022-09-10] MEDS: ACETAMINOPHEN 325 MG TABLET PO PRN (18:16)
[2022-09-10 19:30] VITALS: BP 153/80
[2022-09-10] MEDS: INSULIN GLARGINE,HUM.REC.ANLOG 100 UNITS/ML SQ SCH (20:40)
[2022-09-10 21:21] LABS: GLUCOMETER DEV NAME(LOC) 5N.2C; GLUCOSE,POINT OF CARE 160 MG/DL (70-110)
[2022-09-10 21:21] LABS: GLUCOMETER DEV NAME(LOC) 5N.2C; GLUCOSE,POINT OF CARE 220 MG/DL (70-110)
[2022-09-10 21:21] LABS: GLUCOMETER DEV NAME(LOC) 5N.2C; GLUCOSE,POINT OF CARE 174 MG/DL (70-110)
[2022-09-11 00:01] VITALS: BP 151/80
[2022-09-11 04:19] VITALS: BP 146/85
[2022-09-11 07:33] VITALS: BP 152/84
[2022-09-11] MEDS: OXYGEN THERAPY IH SCH (08:00)
[2022-09-11] MEDS: FAMOTIDINE 20 MG TABLET PO SCH (08:37)
[2022-09-11] MEDS: AMIODARONE HCL 200 MG TABLET PO SCH (08:37)
[2022-09-11] MEDS: DIGOXIN 125 MCG TABLET PO SCH (08:37)
[2022-09-11] MEDS: GABAPENTIN 100 MG CAPSULE PO SCH ×2 (08:37→16:23)
[2022-09-11] MEDS: DOCUSATE SODIUM 100 MG CAPSULE PO SCH (08:37)
[2022-09-11] MEDS: SODIUM CHLORIDE 1 GM TABLET PO SCH (08:38)
[2022-09-11] MEDS: METOPROLOL TARTRATE 50 MG TABLET PO SCH (08:38)
[2022-09-11] MEDS: OxyCODONE HCL/ACETAMINOPHEN 5-325 MG TABLET PO PRN (08:39)
[2022-09-11] MEDS: MEROPENEM 1 GM in SODIUM CHLORIDE 0.9% 100 ML IV SCH ×2 (08:44→17:22)
[2022-09-11] MEDS: HEPARIN SODIUM,PORCINE 5,000 UNITS/ML VIAL IVP PRN (10:15)
[2022-09-11] MEDS: HEPARIN SODIUM 25000 UNITS/D5W 250 ML IV PRN (10:20)
[2022-09-11 11:22] VITALS: BP 143/79
[2022-09-11] MEDS: INSULIN LISPRO 100 UNITS/ML SQ PRN (12:20)
[2022-09-11 15:42] VITALS: BP 141/65
[2022-09-11] MEDS: ACETAMINOPHEN 325 MG TABLET PO PRN (16:17)
[2022-09-11 20:06] LABS: GLUCOMETER DEV NAME(LOC) 5S.1B; GLUCOSE,POINT OF CARE 109 MG/DL (70-110)
[2022-09-12 06:36] LABS: GLUCOMETER DEV NAME(LOC) 5N.1C; GLUCOSE,POINT OF CARE 94 MG/DL (70-110)
[2022-09-12 06:37] LABS: GLUCOMETER DEV NAME(LOC) 5N.1C; GLUCOSE,POINT OF CARE 162 MG/DL (70-110)
[2022-09-12 20:16] LABS: GLUCOMETER DEV NAME(LOC) 5S.2C; GLUCOSE,POINT OF CARE 158 MG/DL (70-110)
== END 2022-09-11 19:27 | DRG 239 ==
LOC: EMS 12:54 → AHU 17:16 → 5N 19:30 → 5S 09-05 21:14
PROVIDERS: ADMIT Internal Medicine; ATTEND Internal Medicine
PROC: B41F1ZZ Fluoroscopy of Right Lower Extremity Arteries using Low Osmolar Contrast (ICD-10-PCS; 2022-08-24)
PROC: B41J1ZZ Fluoroscopy of Other Lower Arteries using Low Osmolar Contrast (ICD-10-PCS; 2022-08-24)
PROC: 0JBQ0ZZ Excision of Right Foot Subcutaneous Tissue and Fascia, Open Approach (ICD-10-PCS; 2022-08-27)
PROC: B4101ZZ Fluoroscopy of Abdominal Aorta using Low Osmolar Contrast (ICD-10-PCS; principal; 2022-09-01)
PROC: 047P3ZZ Dilation of Right Anterior Tibial Artery, Percutaneous Approach (ICD-10-PCS; 2022-09-01)
PROC: 047R3ZZ Dilation of Right Posterior Tibial Artery, Percutaneous Approach (ICD-10-PCS; 2022-09-01)
PROC: 047T3ZZ Dilation of Right Peroneal Artery, Percutaneous Approach (ICD-10-PCS; 2022-09-01)
PROC: B41F1ZZ Fluoroscopy of Right Lower Extremity Arteries using Low Osmolar Contrast (ICD-10-PCS; 2022-09-01)
PROC: B44LZZZ Ultrasonography of Femoral Artery (ICD-10-PCS; 2022-09-01)
PROC: B44FZZZ Ultrasonography of Right Lower Extremity Arteries (ICD-10-PCS; 2022-09-01)
PROC: 04HP33Z Insertion of Infusion Device into Right Anterior Tibial Artery, Percutaneous Approach (ICD-10-PCS; 2022-09-01)
PROC: 04HR33Z Insertion of Infusion Device into Right Posterior Tibial Artery, Percutaneous Approach (ICD-10-PCS; 2022-09-01)
PROC: 04HT33Z Insertion of Infusion Device into Right Peroneal Artery, Percutaneous Approach (ICD-10-PCS; 2022-09-01)
PROC: 0Y6H0Z3 Detachment at Right Lower Leg, Low, Open Approach (ICD-10-PCS; 2022-09-06)
DX: E11.52 Type 2 diabetes mellitus with diabetic peripheral angiopathy with gangrene (principal); E43 Unspecified severe protein-calorie malnutrition; G92.8 Other toxic encephalopathy; J18.9 Pneumonia, unspecified organism; I77.70 Dissection of unspecified artery; I96 Gangrene, not elsewhere classified; L97.419 Non-pressure chronic ulcer of right heel and midfoot with unspecified severity; I48.20 Chronic atrial fibrillation, unspecified; E87.1 Hypo-osmolality and hyponatremia; E11.621 Type 2 diabetes mellitus with foot ulcer; I25.10 Atherosclerotic heart disease of native coronary artery without angina pectoris; Z68.30 Body mass index [BMI] 30.0-30.9, adult; E78.5 Hyperlipidemia, unspecified; N40.0 Benign prostatic hyperplasia without lower urinary tract symptoms; I11.0 Hypertensive heart disease with heart failure; I50.9 Heart failure, unspecified; Z83.3 Family history of diabetes mellitus; Z79.01 Long term (current) use of anticoagulants; Z79.4 Long term (current) use of insulin; Z79.899 Other long term (current) drug therapy; Z87.891 Personal history of nicotine dependence; D75.839 Thrombocytosis, unspecified; Z89.519 Acquired absence of unspecified leg below knee; R33.8 Other retention of urine; L08.9 Local infection of the skin and subcutaneous tissue, unspecified; T40.605A Adverse effect of unspecified narcotics, initial encounter; I70.221 Atherosclerosis of native arteries of extremities with rest pain, right leg
CPT/HCPCS: 36200; 36245; 36569; 70450; 71045; 73718; 75630; 75716; 75962; 76937; 80048; 80053; 80162; 81001; 82533; 82962; 83735; 83880; 83930; 83935; 84100; 84300; 84443; 84484; 85007; 85025; 85027; 85610; 85651; 85730; 86140; 86850; 86900; 86901; 87040; 87070; 87081; 87101; 87186; 87205; 88304; 92523; 92610; 93005; 93306; 93925; 97110; 97116; 97162; 97167; 97530; 97535; 99285; C2623; J0131; J0282; J0712; J0744; J1160; J1170; J1644; J1815; J1885; J2185; J2250; J2270; J2370; J2405; J2704; J3010; J3370; J3475; J3490; J7030; J7050; J7060; J7120; Q9967; 36415-L1; 36415-TC; Z7610